=== PATIENT | male | born 1985 | race Caucasian/White ===

== ENCOUNTER 2019-01-01 03:23 | Emergency (ER) | payer OTHER ==
[2019-01-01 03:32] VITALS: TEMP 97.1
[2019-01-01] MEDS ORDERED: MECLIZINE HYDROCHLORIDE 12.5 MG TAB PO ONE (03:50)
[2019-01-01] MEDS ORDERED: MECLIZINE HYDROCHLORIDE 12.5 MG TAB ONE (03:59)
[2019-01-01] MEDS ORDERED: SCOPOLAMINE 1.5MG PATCH TD SCH (04:00)
[2019-01-01] MEDS ORDERED: SCOPOLAMINE 1.5MG PATCH TD ONE (04:05)
[2019-01-01 04:33] VITALS: BP 144/90; PULSE 84; RESP 18; O2SAT 98
== END 2019-01-01 04:32 | disposition home or self-care (01) ==
LOC: ED 03:23
DX: R42 Dizziness and giddiness (principal); H81.10 Benign paroxysmal vertigo, unspecified ear; R40.2362 Coma scale, best motor response, obeys commands, at arrival to emergency department; R40.2142 Coma scale, eyes open, spontaneous, at arrival to emergency department; R40.2252 Coma scale, best verbal response, oriented, at arrival to emergency department
CPT/HCPCS: 99282; A9270-GY